=== PATIENT | female | born 1990 | race Caucasian/White ===

== ENCOUNTER 2020-03-15 06:05 | Inpatient (IN) | payer BC ==
[2020-03-09 12:19] LABS: BASOPHILS % (AUTO) 0.8 % (0-1); EOSINOPHILS # (AUTO) 0.1 X10'3 (0-0.9); EOSINOPHILS % (AUTO) 1.2 % (0-6); LYMPHOCYTES # (AUTO) 1.6 X10'3 (1.1-4.8); LYMPHOCYTES % (AUTO) 36.5 % (21-51); MEAN CORPUSCULAR HEMOGLOBIN 30.6 PG (27.0-31.0); MEAN CORPUSCULAR VOLUME 92.9 FL (78-98); MEAN PLATELET VOLUME 6.7 FL (7.4-10.4); MONOCYTES # (AUTO) 0.4 X10'3 (0-0.9); MONOCYTES % (AUTO) 8.1 % (2-12); NEUTROPHILS # (AUTO) 2.3 X10'3 (1.8-7.7); NEUTROPHILS % (AUTO) 53.4 % (42-75); PRE OP HEMATOCRIT 40.7 % (35.0-45.0); PRE OP HEMOGLOBIN 13.4 g/dL (12.0-16.0); PRE OP PLATELET COUNT 313 X10'3 (140-440); RED BLOOD COUNT 4.38 X10'6 (4.20-5.60); RED CELL DISTRIBUTION WIDTH 12.9 % (11.5-14.5)
[2020-03-09 12:42] LABS: ALBUMIN 3.9 G/DL (3.4-5.0); ALBUMIN/GLOBULIN RATIO 1.2 (1.1-1.5); ALKALINE PHOSPHATASE 52 IU/L (46-116); BLOOD UREA NITROGEN 2 MG/DL (7-18); BUN/CREATININE RATIO 2.5 (6.6-38.0); CALCIUM 8.8 MG/DL (8.5-10.1); CHLORIDE 107 MMOL/L (99-107); PRE OP ALT 25 U/L (30-65); PRE OP ANION GAP 6 (8-16); PRE OP AST 15 U/L (10-37); PRE OP BILIRUB, TOTAL 0.3 MG/DL (0.0-1.0); PRE OP GLUCOSE 88 MG/DL (70-104); PRE OP SODIUM 143 MMOL/L (135-145); TOTAL CARBON DIOXIDE 29.6 MMOL/L (24-32); TOTAL PROTEIN 7.2 G/DL (6.4-8.2); eGFR 83 ML/MIN
[2020-03-15] VITALS (16 sets, daily range): BP systolic 113–135; BP diastolic 65–89
[~2020-03-15] VITALS: Ht 160 cm; Wt 52.2 kg
[~2020-03-15 06:05] MED LIST: SERT25TA PO; ceFOXitin sod/dextrose 2g/50ml 50 ML IV ONE; famotidine 20mg tablet PO ONE; ringers solution, lacted 1,000 ML IV SCH
[2020-03-15] MEDS ORDERED: LIDOcaine 1% (10mg/ml) 2ml vial ONE (07:14)
[2020-03-15] MEDS ORDERED: fentaNYL/PF 50MCG/1 ML 2ML syringe ONE ×2 (08:43→10:27)
[2020-03-15] MEDS ORDERED: midazolam 2 mg/2 ml injection ONE (08:43)
[2020-03-15] MEDS ORDERED: sevoflurane 250ml liquid IH ONE (08:45)
[2020-03-15] MEDS ORDERED: propofol inj 20 ML IV ONE (08:46)
[2020-03-15] MEDS ORDERED: dexamethasone sod phosphate 4mg/ml inj. ONE (08:46)
[2020-03-15] MEDS ORDERED: rocuronium 10mg/ml inj IV ONE (08:46)
[2020-03-15] MEDS ORDERED: glycopyrrolate 0.2mg/ml inj ONE (08:46)
[2020-03-15] MEDS ORDERED: LIDOcaine 2% (20mg/ml) 5ml vial ONE (08:46)
[2020-03-15] MEDS ORDERED: ondansetron/PF 4mg/2ml inj ONE (08:46)
[2020-03-15] MEDS ORDERED: neostigmine methylsulfate 1 MG/ML 10ml vial ONE (08:46)
[2020-03-15] MEDS ORDERED: ringers solution, lacted 1,000 ML IV SCH (09:24)
[2020-03-15] MEDS ORDERED: labetalol 20mg/4ml (5mg/ml) syringe IV PRN (09:25)
[2020-03-15] MEDS ORDERED: HYDROmorphone inj. 0.5 MG/0.5 ML DISP.SYRIN IV PRN (09:25)
[2020-03-15] MEDS ORDERED: hydrALAZINE 20mg/ml inj. IV PRN (09:25)
[2020-03-15] MEDS ORDERED: ondansetron/PF 4mg/2ml inj IV PRN ×2 (09:25→10:20)
[2020-03-15] MEDS ORDERED: morphine 2 MG/ML inj. syringe IV PRN (09:25)
[2020-03-15] MEDS: Potassium Cl inj 20 MEQ in ringers solution, lacted 1,000 ML IV SCH ×3 (10:18→23:48)
[2020-03-15] MEDS ORDERED: CADD PCA waste documentation MC PRN (10:20)
[2020-03-15] MEDS ORDERED: naloxone 0.4 mg/ml inj IV PRN (10:20)
--- NOTE | 2020-03-15 10:46 | NUR ---
Received from OR via ICU BED , accompanied by Anesthesiologist MALLORIE and report given by Anesthesiolgist. PATIENT WITH ART LINE IN RIGHT UE WELL A 20G PIV IN RIGHT RUNNING LR AT 100. MEDICATED FOR PAIN UPON ARRIVAL FROM OR. SCDS DONNED. [place] [facility] IS [facility]. Addendum: 03/15/20 at 1101 by Robson Lew RN, RN Amended: Links added.
[2020-03-15] MEDS: HYDROmorphone/NS 1 mg/ml CADD 50 ML IV SCH ×9 (11:00→23:00)
[2020-03-15] MEDS: HYDROmorphone inj. 0.5 MG/0.5 ML DISP.SYRIN IV PRN ×2 (11:13→11:32)
[2020-03-15] MEDS: morphine 4 MG/ML inj SYRINge IV PRN ×2 (11:29→11:51)
--- NOTE | 2020-03-15 11:56 | NUR ---
ALL CRITERIA FOR DC TO THE FLOOR HAS BEEN ACHIEVED. 3 RAILS UP. BED LOW, CALL LIGHT PRESENT. GAVE REPORT TO RN . PAIN AT A TOLERABLE LEVEL AT THIS TIME. DRESSINGS CDI. CARE TURNED OVER TO BRIGIDO GUERRERO. VSS. BED LOW. 3 RAILS UP AND PATIENT STILL ON RIGHT SIDE. SUPERVISOR FUSING ROOM CASSETTE ARRIVED AND BRIGIDO GUERRERO COMPLETING CADD SET UP. Addendum: 03/15/20 at 1215 by Robson Burden - BRIGIDO FOFANA Amended: Links added.
[2020-03-15] MEDS: sertraline 50mg tablet PO SCH (14:19)
--- NOTE | 2020-03-15 18:54 | NUR ---
Problems reprioritized. Patient report given, questions answered & plan of care reviewed with Becky FOFANA.
[2020-03-15] MEDS: ondansetron/PF 4mg/2ml inj IV PRN (21:27)
--- NOTE | 2020-03-15 21:30 | NUR ---
Patient has not void since surgery. Patient attempted to void in toilet but unsuccessful. Bladder scan show >460ml. Patient attempted to ambulated but got too nauseated when she tried walking to the hallway. MD notified to increase Zofran from Q6hr to Q4hr. And place jernigan cath over night. Will continue with care.
[2020-03-16] VITALS: BP 120/91
[2020-03-16] MEDS: HYDROmorphone/NS 1 mg/ml CADD 50 ML IV SCH ×12 (01:00→23:00)
[2020-03-16] MEDS: ondansetron/PF 4mg/2ml inj IV PRN ×2 (03:49→08:57)
[2020-03-16 04:00] VITALS: BP 104/72
--- NOTE | 2020-03-16 05:30 | NUR ---
Patient's F/C removed this morning @0530.
--- NOTE | 2020-03-16 06:47 | NUR ---
Patient in room [facility]. I have received report from BRIGIDO Pena and had the opportunity to ask questions and assume patient care.
[2020-03-16 07:00] VITALS: BP 96/75
[2020-03-16] MEDS: sertraline 50mg tablet PO SCH (08:56)
[2020-03-16] MEDS: proCHLORperazine 10 MG/2 ml inj IV PRN ×2 (10:10→22:54)
[2020-03-16] MEDS: ketorolac trometh. 30mg/ml inj. IV PRN (10:10)
[2020-03-16 11:00] VITALS: BP 111/64
[2020-03-16] MEDS: potassium 20mEq/D5LR 1,000 ML IV SCH ×3 (12:45→22:54)
--- NOTE | 2020-03-16 13:09 | NUR ---
Bladder scanned pt. 380ml shown in bladder. Encouraged pt. to get up and ambulate. Primary RN aware. Addendum: 03/16/20 at 1311 by Margy Orlando RN 390ML shown in bladder.
--- NOTE | 2020-03-16 13:09 | NUR ---
Bladder scan shows 390cc's in bladder. Pt states she will get up to walk and try again to void. Will continue to monitor.
--- NOTE | 2020-03-16 15:30 | NUR ---
Bladder scan shows 429cc's urine in bladder.
--- NOTE | 2020-03-16 17:09 | NUR ---
Straight cath'd pt per written orders. 525cc's urine out. Pt tolerated well, will continue to monitor.
--- NOTE | 2020-03-16 18:31 | NUR ---
Problems reprioritized. Patient report given, questions answered & plan of care reviewed with BRIGIDO Pena.
[2020-03-16 20:00] VITALS: BP 121/82
--- NOTE | 2020-03-16 23:30 | NUR ---
Patient woke up from her sleep. C/O pain and discomfort. Bladder scan show only 300ml in bladder. Patient in alot of pain. Nurse encourage patient to press her pain medication Q 10 mins until her pain is in better control before going back to sleep. Patient states understanding.
[2020-03-17] VITALS: BP 118/77
[2020-03-17] MEDS: HYDROmorphone/NS 1 mg/ml CADD 50 ML IV SCH ×6 (01:00→11:00)
--- NOTE | 2020-03-17 02:30 | NUR ---
St. Cath patient under sterile procedure. Return 600ml clear urine. Patient tolerated well.
--- NOTE | 2020-03-17 05:44 | NUR ---
Bladder scan this morning @0540 show 170ml in bladder.
--- NOTE | 2020-03-17 06:44 | NUR ---
Patient in room [facility]. I have received report from BRIGIDO Pena and had the opportunity to ask questions and assume patient care.
[2020-03-17 08:00] VITALS: BP 125/83
[2020-03-17] MEDS: potassium 20mEq/D5LR 1,000 ML IV SCH (08:43)
[2020-03-17] MEDS: sertraline 50mg tablet PO SCH (08:43)
[2020-03-17] MEDS: ketorolac trometh. 30mg/ml inj. IV PRN (08:45)
[2020-03-17 11:00] VITALS: BP 116/75
[2020-03-17] MEDS: oxyCODONE/APAP 5-325mg tablet PO PRN (16:25)
[2020-03-17] MEDS: ondansetron/PF 4mg/2ml inj IV PRN (16:26)
[2020-03-17 18:00] VITALS: BP 125/89
--- NOTE | 2020-03-17 18:48 | NUR ---
Problems reprioritized. Patient report given, questions answered & plan of care reviewed with BRIGIDO Campos.
[2020-03-17] MEDS: proCHLORperazine 10 MG/2 ml inj IV PRN (20:23)
[2020-03-18] VITALS: BP 119/79
--- NOTE | 2020-03-18 | NUR ---
Pt. A 7& O with c/o abd pain constant in nature pain medication given as ordered. Antiemetics administered for c/o nausea effective. Pt voided adequately this shift. Pain controlled with prn IV toradol. Addendum: 03/18/20 at 0768 by Beth Butts RN Amended: Links added.
[2020-03-18] MEDS: oxyCODONE/APAP 5-325mg tablet PO PRN (00:46)
[2020-03-18] MEDS: potassium 20mEq/D5LR 1,000 ML IV SCH (00:54)
--- NOTE | 2020-03-18 02:12 | NUR ---
Toradol IV p administered but did not save. Addendum: 03/18/20 at 0344 by Beth Butts RN Amended: Links added.
[2020-03-18] MEDS: ketorolac trometh. 30mg/ml inj. IV PRN (03:21)
--- NOTE | 2020-03-18 06:00 | NUR ---
Patient report given to day shift nurse Giselle FOFANA. Care f/u needs discussed with Giselle FOFANA. Addendum: 03/18/20 at 0739 by Beth Butts RN Amended: Links added.
--- NOTE | 2020-03-18 06:30 | NUR ---
Patient in room [facility]. I have received report from BRIGIDO Campos and had the opportunity to ask questions and assume patient care.
[2020-03-18 07:00] VITALS: BP 106/70
[2020-03-18] MEDS: sertraline 50mg tablet PO SCH (08:27)
[2020-03-18] MEDS ORDERED: ondansetron 4mg rapidly disintigrating tab PO PRN (09:45)
[2020-03-18] MEDS ORDERED: ONDA4TAB12 PO (09:48)
[2020-03-18] MEDS ORDERED: TRAM50TA2 PO (09:48)
[2020-03-18 11:22] VITALS: BP 129/87
[2020-03-18] MEDS: traMADol 50MG tablet PO PRN ×2 (11:54→17:25)
== END 2020-03-18 17:40 | disposition home or self-care (01) | DRG 337 ==
LOC: PAS IN 06:05 → UNDOADMIN 06:05 → EDSTATUS 09:00 → PAS IN 10:18 → CICU 2S 11:50 → SUR 3N 12:14 → CICU 2S 12:14
PROVIDERS: ADMIT Surgery; ATTEND Surgery
PROC: 0DN90ZZ Release Duodenum, Open Approach (ICD-10-PCS; principal; 2020-03-15 08:52)
DX: K55.1 Chronic vascular disorders of intestine (principal); R33.9 Retention of urine, unspecified; Z83.3 Family history of diabetes mellitus; Z88.1 Allergy status to other antibiotic agents
CPT/HCPCS: Z7506; Z7508; 36415; 80053; 82948; 85025; 86885; 86900; 86901; 87081; A4618; A7000; C1758; G0378; J0694; J0780; J1100; J1170; J1885; J2001; J2250; J2270; J2405; J2704; J2710; J3010; J3480; J3490; J7040; J7120